=== PATIENT | female | born 1995 | race Two or more races ===

== ENCOUNTER 2017-05-14 14:05 | Emergency (ER) | payer MEDICAID ==
[~2017-05-14] VITALS: Ht 167.6 cm; Wt 68.4 kg
[2017-05-14] MEDS ORDERED: MORPHINE SULFATE 4 MG/ML, 1ML ONE (14:31)
[2017-05-14] MEDS ORDERED: ONDANSETRON 2MG/ML, 2ML ONE (14:32)
[2017-05-14 14:57] LABS: HEMATOCRIT 41.8 % (34.6-47.8); HEMOGLOBIN 13.9 g/dL (11.7-16.4); WHITE BLOOD COUNT 9.2 x10^3/uL (3.4-10)
[2017-05-14] MEDS ORDERED: MORPHINE SULFATE 4 MG/ML, 1ML IVPush PRN (15:00)
[2017-05-14] MEDS ORDERED: ONDANSETRON 2MG/ML, 2ML IVPush ONE (15:00)
[2017-05-14] MEDS ORDERED: SODIUM CHLORIDE 0.9% 1,000ML IVBOLUS ONE (15:00)
[2017-05-14] MEDS ORDERED: SODIUM CHLORIDE FLUSH 10ML SYR IVF ONE (15:00)
[2017-05-14 15:09] LABS: ASPARTATE AMINO TRANSFERASE 18 U/L (15-37); BLOOD UREA NITROGEN 12 mg/dL (7-18)
[2017-05-14 16:47] VITALS: BP 117/71
== END 2017-05-14 16:42 | disposition home or self-care (01) ==
LOC: ED 14:55
DX: K29.00 Acute gastritis without bleeding (principal); R10.33 Periumbilical pain
CPT/HCPCS: 36415; 80053; 81003; 83605; 83690; 84703; 85025; 86677; 96361; 96374; 96375; 99285; J2405; J7030